=== PATIENT | female | born 1965 | race Caucasian/White ===

== ENCOUNTER → 2017-11-26 | Outpatient (REF) | payer BC ==
[2017-11-26 15:12] LABS: FERRITIN 9 NG/ML (8-252); TOTAL IRON BINDING CAPACITY 380 UG/DL (250-450)
[2017-11-26 16:26] LABS: REASON FOR REVIEW RBC MORPHOLOGY; SLIDE REVIEW Report; SOURCE PERIPHERAL SMEAR
[2017-11-26 22:56] LABS: IRON (FE) 127 UG/DL (50-170)
[2017-11-26 23:01] LABS: PERCENT SATURATION 33.4 % (13.2-45.0)
== END ==
LOC: M LAB REF 13:09
DX: D64.9 Anemia, unspecified (principal)
CPT/HCPCS: 83550

== ENCOUNTER → 2018-07-27 | Outpatient (REF) | payer BC ==
[~2018-07-27] MED LIST: ACYC200C8 PO; D 50CAP PO; DULO1CAP3 PO; FURO40TA2 PO; HYDR-3716 PO; IRON27TA2 PO; MULTCAP PO; OMEP-221 PO; SERT-141 PO; STOO1CAP7 PO; SYNT100T PO; ZOVI5OIN8 TOP
[2018-07-30 14:14] LABS: HPV HYBRID CAPTURE II Negative (Negative)
== END ==
LOC: M LAB LCGH 13:55
PROVIDERS: ATTEND Family Medicine
DX: Z12.4 Encounter for screening for malignant neoplasm of cervix (principal)
CPT/HCPCS: 87624; G0123